=== PATIENT | female | born 1960 | race Caucasian/White ===

== ENCOUNTER 2024-03-27 10:13 | Outpatient (CLI) | payer OTHER, SELFPAY ==
--- NOTE | ~2024-03-27 | XR_ITS ---
AP and lateral views of the right hip Clinical history: Pain Findings: No acute fracture or dislocation is seen. Osseous alignment is anatomic. Bilateral there is mild to moderate degenerative change of the right hip joint. Soft tissues are unremarkable. Impression: Mild to moderate degenerative change of the right hip joint, especially superiorly. Reviewed, dictated and finalized at [facility]. Impression: Mild to moderate degenerative change of the right hip joint, especially superio rly.
== END 2024-03-27 10:14 ==
PROVIDERS: PCP Pain Medicine Pain Medicine; Visit Provider Pain Medicine Pain Medicine
DX: M16.11 Unilateral primary osteoarthritis, right hip (principal)
CPT/HCPCS: 73502